=== PATIENT | female | born 1990 | race Caucasian/White ===

== ENCOUNTER 2016-09-16 01:27 | Inpatient (IN) ==
[2016-09-16] MEDS ORDERED: FAMOTIDINE 20 MG/2 ML VIAL IV ONE (01:45)
[2016-09-16] MEDS ORDERED: CITRIC ACID/SODIUM CITRATE 30 ML UDCUP PO ONE (01:45)
[2016-09-16] MEDS ORDERED: LACTATED RINGERS 1,000 ML IV SCH (02:00)
[2016-09-16] MEDS ORDERED: OXYTOCIN/LR 20 UNIT/1,000 ML BAG IV ONE ×3 (02:06→03:59)
[2016-09-16 02:16] LABS: Basophils # 0.1 10*3/uL (0.0-0.2); Basophils % 0.4 % (0.0-0.8); Eosinophils # 0.2 10*3/uL (0.0-0.87); Eosinophils % 1.2 % (0.00-10.9); Hematocrit 31.3 VOL% (35.7-47.0); Hemoglobin 10.3 GM/DL (12.0-16.0); Immature Granulocytes % 0.9 %; Immature Granulocytes Absolute 0.12 #; Lymphocytes % 23.1 % (21.3-54.2); Mean Corpuscular HGB Conc 32.9 GM/DL (32-36); Mean Corpuscular Hemoglobin 30 PG (27-34); Mean Corpuscular Volume 90.2 FL (87-102); Mean Platelet Volume 11.2 FL (9.6-12.0); Monocytes % 7.7 % (1.7-12.7); Neutrophils # 8.5 10*3/uL (1.4-7.4); Neutrophils % 66.7 % (38.7-73.9); Platelet Count 201 T/CUMM (130-400); Red Blood Count 3.47 MC/CUMM (3.8-5.5); Red Cell Distribution Width 12.8 % (9.3-17.3); White Blood Count 12.8 T/CUMM (4-12)
[2016-09-16] MEDS ORDERED: SODIUM CHLORIDE 0.9% 250 ML IV PRN (02:19)
--- NOTE | 2016-09-16 02:49 | History and Physical Update ---
History and Physical Update - Dictation Physical: refer to scanned H&P - Physical Exam Mental Status: alert and oriented Heart: regular rate and rhythm Lung: clear to auscultation Abdomen: within normal limits Vitals: within normal limits History and Physical Changes: 39w3d sched for Primary LTCS for low-lying placenta for this morning presented to L&D with active bleeding at 0200. Plan to proceed with . No other complications.
[2016-09-16] MEDS ORDERED: ACETAMINOPHEN 325 MG TABLET PO PRN (03:42)
[2016-09-16] MEDS ORDERED: SIMETHICONE CHEW 80 MG TABLET PO PRN (03:42)
[2016-09-16] MEDS ORDERED: ONDANSETRON 4 MG/2 ML VIAL IV PRN (03:42)
[2016-09-16] MEDS ORDERED: RHO(D) IMMUNE GLOBULIN 300 MCG SYRINGE IM ONE (03:42)
--- NOTE | 2016-09-16 03:46 | Discharge Summary ---
Hospital Course - Hospital Course Hospital Course: Pt presented to L&D at ~0200 with active vaginal bleeding with known low-lying placenta. She was 39w3d scheduled for Primary LTCS later on 09/16/16. Her course ... Discharge Plan - Discharge Data Disposition: Disch To Home/Self Care Condition at Discharge: Stable Discharge Diet: regular diet Activity: other (pelvic rest x 6 wks) Hygiene: may shower Weight Bearing at Discharge: full weight bearing Contact your physician if you experience:: fever over 101, Difficulty voiding, Redness or swelling, Nausea/Vomiting, Shortness of breath, Bleeding, pain uncontrolled by pain medications - Discharge Medications New Ibuprofen Tab [Motrin Tab] 800 mg PO Q8H PRN #30 tablet PRN Reason: Pain Severe (8-10) oxyCODONE/ACETAMINOPHEN 5-325 [Percocet 5-325] 2 tablet PO Q4H PRN #30 tablet PRN Reason: Pain Moderate (4-7) No Action Vits #90/Iron Fum/FA [ Formula Tablet] 1 mg PO DAILY Ferrous Sulfate, Dried [Iron] 1 mg PO DAILY - Follow Up or Referral Follow Up: Cathy Bonilla DO [Physician] - 1 Week - Forms/Instructions Exam - Constitutional Vitals: Period Temp Pulse Resp BP Sys/Quintero Pulse Ox Last 24 Hr 98.6 F 93 20 133/82 General appearance: normal weight, no acute distress - Head Head exam: Present: normal inspection, normocephalic - Eye Eye exam: Present: EOMI - Respiratory Respiratory exam: Present: clear to auscultation bilaterally - Cardiovascular Cardiovascular exam: Present: regular rate and rhythm - GI/Abdominal GI/Abdominal exam: Present: soft (fundus firm, nontender. Incision intact without E/I/D) - Extremities Exam Extremities exam: Present: normal inspection - Neurological Exam Neurological exam: Present: alert, oriented X3 - Psychiatric Psychiatric exam: Present: normal affect, normal mood - Skin Skin exam: Present: normal color, warm Discharge Results Procedures and tests throughout hospitalization: Pending Orders 09/16/16 02:10 Red Blood Cells Leuko Red Stat Type and Screen Stat 09/17/16 04:00 Comp Blood Count Auto Diff IN AM Labs on day of discharge: Labs from last 24 hours 09/16/16 09/16/16 02:10 02:10 WBC 12.8 H RBC 3.47 L Hgb 10.3 L Hct 31.3 L MCV 90.2 MCH 30 MCHC 32.9 RDW 12.8 Plt Count 201 MPV 11.2 Neut % (Auto) 66.7 Lymph % (Auto) 23.1 Wallace % (Auto) 7.7 Eos % (Auto) 1.2 Baso % (Auto) 0.4 Neut # (Auto) 8.5 H Lymph # (Auto) 3.0 Wallace # (Auto) 1.0 H Eos # (Auto) 0.2 Baso # (Auto) 0.1 Immature Gran % 0.9 Nucleated RBC % 0.0 Immature Gran # 0.12 Nucleated RBCs # 0.00 Blood Type O POSITIVE Antibody Screen Negative DS: Provider Date of admission: 09/16/16 01:45 Primary care physician: . No PCP Attending physician on admission: Cathy Bonilla DO Consults: 09/16/16 01:45 Consult to Anesthesiology [CONS] Routine Consulting Provider: Reason for Anesthesiology: Pre-op Clearance 09/16/16 03:42 Consult to Rn Night [CONS] Routine Consult Rn Night: Breast Feeding Discharging clinician: Cahty Bonilla DO Expected date of discharge: 09/16/16
--- NOTE | 2016-09-16 03:52 | Anesthesia ---
Anesthesia Post OP - Post Ansesthetic Evaluation Patient seen in post op: Yes Resp: within normal limits CV: within normal limits Mental: within normal limits Temp: within normal limits Ybie-Ob-Molcfgimf: within normal limits Nausea and Vomiting: within normal limits Pain: within normal limits
[2016-09-16] MEDS ORDERED: MORPHINE 10 MG/10 ML VIAL ONE (03:55)
[2016-09-16] MEDS ORDERED: fentaNYL 100 MCG/2 ML VIAL ONE (03:55)
[2016-09-16] MEDS ORDERED: ePHEDrine 50 MG/ML AMP ONE (03:55)
[2016-09-16 07:28] LABS: Apearance,Urine Slightly Hazy (Clear); Bilirubin,Urine Negative (Negative); Blood, Urine Small mg/dL (Negative); Glucose,Urine (UA) Negative (Negative); Ketones,Urine Negative (Negative); Mucus,Urine Occasional /LPF (Occasional); Nitrite,Urine Negative (Negative); Protein,Urine 30 MG/DL; RBC,Urine 18 /HPF (0-4); Squamous Epithelial Cell,Urine Occasional /HPF (0-10); Urine Color Yellow (Yellow); Urine Specific Gravity 1.024 (1.001-1.035); Urine Urobilinogen < 2.0 EU/DL (0.2-1.0); WBC,Urine 12 /HPF (0-6)
[2016-09-16] MEDS: DOCUSATE SODIUM 100 MG CAPSULE PO SCH ×2 (08:35→22:00)
[2016-09-16] MEDS: MULTIVITAMIN (PRENATAL) TABLET PO SCH (08:35)
[2016-09-16 10:59] LABS: Basophils % 0.2 % (0.0-0.8); Eosinophils % 0.2 % (0.00-10.9); Hemoglobin 9.1 GM/DL (12.0-16.0); Immature Granulocytes % 0.6 %; Immature Granulocytes Absolute 0.08 #; Lymphocytes # 2.4 10*3/uL (1.4-4.0); Lymphocytes % 16.9 % (21.3-54.2); Mean Corpuscular HGB Conc 32.5 GM/DL (32-36); Mean Corpuscular Hemoglobin 30 PG (27-34); Mean Corpuscular Volume 90.9 FL (87-102); Mean Platelet Volume 11.1 FL (9.6-12.0); Monocytes # 0.8 10*3/uL (0.11-0.8); Monocytes % 5.3 % (1.7-12.7); Neutrophils # 10.9 10*3/uL (1.4-7.4); Neutrophils % 76.8 % (38.7-73.9); Platelet Count 169 T/CUMM (130-400); Red Blood Count 3.08 MC/CUMM (3.8-5.5); Red Cell Distribution Width 12.9 % (9.3-17.3); White Blood Count 14.2 T/CUMM (4-12)
[2016-09-16] MEDS: LACTATED RINGERS 1,000 ML IV SCH ×2 (14:24)
[2016-09-16] MEDS: oxyCODONE/ACETAMINOPHEN 5-325 MG TABLET PO PRN (16:04)
[2016-09-16] MEDS: IBUPROFEN 800 MG TABLET PO PRN (16:05)
[2016-09-16] MEDS: MAGNESIUM HYDROXIDE SUSP 30 ML UDCUP PO PRN (22:00)
[2016-09-17 06:02] LABS: Basophils % 0.2 % (0.0-0.8); Eosinophils # 0.1 10*3/uL (0.0-0.87); Eosinophils % 0.4 % (0.00-10.9); Hematocrit 27.4 VOL% (35.7-47.0); Hemoglobin 8.8 GM/DL (12.0-16.0); Immature Granulocytes % 1.1 %; Immature Granulocytes Absolute 0.15 #; Lymphocytes % 14.4 % (21.3-54.2); Mean Corpuscular HGB Conc 32.1 GM/DL (32-36); Mean Corpuscular Hemoglobin 29 PG (27-34); Mean Platelet Volume 11.5 FL (9.6-12.0); Monocytes # 0.9 10*3/uL (0.11-0.8); Monocytes % 6.6 % (1.7-12.7); Neutrophils # 10.5 10*3/uL (1.4-7.4); Neutrophils % 77.3 % (38.7-73.9); Platelet Count 176 T/CUMM (130-400); Red Blood Count 3.01 MC/CUMM (3.8-5.5); White Blood Count 13.6 T/CUMM (4-12)
[2016-09-17] MEDS: MULTIVITAMIN (PRENATAL) TABLET PO SCH (08:56)
[2016-09-17] MEDS: DOCUSATE SODIUM 100 MG CAPSULE PO SCH ×2 (08:56→21:25)
[2016-09-17] MEDS: MAGNESIUM HYDROXIDE SUSP 30 ML UDCUP PO PRN ×2 (08:56→21:25)
--- NOTE | 2016-09-17 09:59 | OB/GYN Progress Note ---
CONSULTING MANAGER - PN: Subj Interval history: Patient is doing well. She is tolerating her diet. She is alert and oriented 3 Cardiovascular regular rate and rhythm Lungs clear to auscultation Abdomen soft with appropriate tenderness and bowel sounds are present and her incision is dry no bleeding Is good refill HEENT shows pink conjunctiva [place] assessment 1 day of surgery doing well Plan continue present management Exam CONSULTING MANAGER - Constitutional Vitals: Vital Signs Temp Pulse Resp BP Pulse Ox 09/17/16 07:25 99.1 F 85 18 136/79 96 09/17/16 06:00 18 09/17/16 04:00 98.3 F 83 18 124/83 98 09/17/16 02:00 18 09/16/16 23:56 97.6 F 78 18 115/58 98 09/16/16 20:00 97.7 F 78 20 112/67 98 09/16/16 16:00 99.4 F 81 18 133/80 98 09/16/16 11:14 98.2 F 87 20 119/62 98 Results - Labs CBC & BMP: 09/17/16 04:46
[2016-09-17] MEDS: oxyCODONE/ACETAMINOPHEN 5-325 MG TABLET PO PRN (21:55)
[2016-09-17] MEDS: IBUPROFEN 800 MG TABLET PO PRN (21:55)
[2016-09-18 07:28] VITALS: BP 108/66
[2016-09-18] MEDS: MULTIVITAMIN (PRENATAL) TABLET PO SCH (08:59)
[2016-09-18] MEDS: DOCUSATE SODIUM 100 MG CAPSULE PO SCH (08:59)
--- NOTE | 2016-09-18 11:07 | OB/GYN Progress Note ---
WOOD FINISHER - PN: Subj Interval history: Patient is doing well. She is tolerating her diet. She is alert and oriented 3 Cardiovascular regular rate and rhythm Lungs clear to auscultation Abdomen soft with appropriate tenderness and bowel sounds are present and her incision is dry no bleeding Is good refill HEENT shows pink conjunctiva [place] assessment 1 day of surgery doing well Plan continue present management with expected DC in a.m. Exam WOOD FINISHER - Constitutional Vitals: Vital Signs Temp Pulse Resp BP Pulse Ox 09/18/16 07:28 97.3 F L 77 18 108/66 97 09/18/16 03:50 97.1 F L 80 16 110/66 97 09/18/16 00:20 18 09/17/16 23:25 97.8 F 86 18 108/60 96 09/17/16 19:30 98.9 F 93 H 20 130/83 96 09/17/16 15:46 98.6 F 100 H 20 120/82 98 09/17/16 11:24 97.8 F 103 H 20 120/86 98 Results - Labs CBC & BMP: 09/17/16 04:46
[2016-09-18] MEDS ORDERED: MEASLES/MUMPS/RUBELLA VACCINE 0.5 ML VIAL SUBCUT ONE (11:45)
--- NOTE | 2016-09-19 12:59 | Pathology Report from [facility] ---
ACCESSION # : [id number] PATIENT NAME : Keira Paz ORDERING DR : MINOO MUNOZ CLINICAL HX: 39.3 wks IUP, active labor w/low lying placenta & vaginal bleeding POST-OP DX: Same SPECIMEN INFO: Placenta GROSS DESCRIPTION: Received fresh labeled "KEIRA PAZ" is a 492 gm placenta measuring 19.5 x 16.5 x 2.5 cm. The membranes are pink nicole and translucent. The umbilical cord measures 28.0 cm, contain three vessels and is eccentrically inserted. The surface is blue [place] and intact. The maternal surface is hemorrhagic and intact with no abnormalities appreciated upon sectioning. Sections submitted A- membranes and cord, B- and maternal surfaces. DIAGNOSIS FOR KEIRA PAZ: PLACENTA, MEMBRANES, UMBILICAL CORD: Focal placental infarction with dystrophic calcification, mild intervillous blood. Tri -vessel umbilical cord, eccentrically inserted. Membranes with focal acute and chronic inflammation and attached blood. SERVICE DATE: 09/16/2016 REPORT DATE: 09/19/2016 PATHOLOGIST: Champ Mendoza
== END 2016-09-18 13:20 | disposition home or self-care (01) | DRG 766 ==
LOC: N.LDOUT 01:27 → N.LD 01:31 → N.OB 06:00
PROVIDERS: ADMIT Obstetrics & Gynecology; ATTEND Obstetrics & Gynecology
PROC: LDCSECT (ICD-10-PCS; 2016-09-16 02:30)

== ENCOUNTER 2021-02-23 09:57 | Inpatient (IN) ==
[2021-02-23] MEDS ORDERED: CITRIC ACID/SODIUM CITRATE 30 ML UDCUP PO ONE (10:32)
[2021-02-23] MEDS: LACTATED RINGERS 1,000 ML IV SCH ×2 (10:34→14:47)
[2021-02-23 10:59] LABS: Basophils # 0.1 10*3/uL (0.0-0.2); Basophils % 0.6 % (0.0-0.8); Eosinophils # 0.1 10*3/uL (0.0-0.87); Eosinophils % 0.9 % (0.00-10.9); Hematocrit 33.1 VOL% (35.7-47.0); Hemoglobin 10.8 GM/DL (12.0-16.0); Immature Granulocytes % 2.5 %; Immature Granulocytes Absolute 0.31 #; Lymphocytes # 2.4 10*3/uL (1.4-4.0); Lymphocytes % 18.7 % (21.3-54.2); Mean Corpuscular HGB Conc 32.6 GM/DL (32-36); Mean Corpuscular Volume 94.8 FL (87-102); Mean Platelet Volume 9.9 FL (9.6-12.0); Monocytes % 6.2 % (1.7-12.7); Neutrophils % 71.1 % (38.7-73.9); Platelet Count 251 T/CUMM (130-400); Red Blood Count 3.49 MC/CUMM (3.8-5.5); Red Cell Distribution Width 13.2 % (9.3-17.3); White Blood Count 12.6 T/CUMM (4-12)
[2021-02-23 11:18] LABS: Alanine Aminotransferase 11 U/L (13-56); Albumin 2.6 G/DL (3.4-5.0); Alkaline Phosphatase 158 U/L (45-117); Aspartate Amino Transferase 12 U/L (0-37); Bilirubin,Total < 0.39 MG/DL (0.20-1.00); Blood Urea Nitrogen 8 MG/DL (7-18); Calcium 8.5 MG/DL (8.5-10.1); Carbon Dioxide 22 MMOL/L (21-32); Estimated Glom Filtration Rate 152 ML/MIN; Glucose 77 MG/DL (74-106); Osmolality,Calculated 273.5 MOS/KG (273-304); Potassium 4.2 MMOL/L (3.5-5.1); Sodium 139 MMOL/L (136-145); Total Protein 6.3 G/DL (6.4-8.2)
[2021-02-23] MEDS ORDERED: OXYTOCIN 10 UNIT/ML VIAL IM ONE (12:21)
[2021-02-23] MEDS ORDERED: OXYTOCIN/LR 30 UNIT/1,000 ML BAG IV ONE (12:21)
[2021-02-23] MEDS ORDERED: FAMOTIDINE 20 MG/2 ML VIAL IV ONE (12:25)
[2021-02-23] MEDS ORDERED: ceFAZolin 2,000 MG/50 ML DUPLEX IV ONE (13:00)
[2021-02-23] MEDS ORDERED: METHYLERGONOVINE 0.2 MG/1 ML AMP ONE (14:21)
[2021-02-23] MEDS ORDERED: miSOPROStoL 200 MCG TABLET ONE (14:21)
[2021-02-23] MEDS ORDERED: PHENYLEPHRINE 1 MG/10 ML SYRINGE IV ONE (15:33)
[2021-02-23] MEDS ORDERED: BUPIVACAINE SPINAL 0.75% 2 ML AMP SPINAL ONE (16:09)
[2021-02-23] MEDS ORDERED: ONDANSETRON 4 MG/2 ML VIAL ONE (16:09)
[2021-02-23] MEDS ORDERED: ACETAMINOPHEN INJ 1,000 MG/100 ML VIAL IV ONE (16:09)
[2021-02-23 16:17] LABS: Cord Arterial Blood HCO3 22.9 MMOL/L
[2021-02-23 16:20] LABS: Cord Venous Blood HCO3 23.8 MMOL/L; Cord Venous Blood PCO2 47.7 MMHG; Cord Venous Blood PO2 22.6
[2021-02-23 16:30] LABS: Bilirubin,Urine Negative (Negative); Blood, Urine Negative (Negative); Glucose,Urine (UA) Negative (Negative); Hyaline Casts,Urine 1 /LPF (0-3); Ketones,Urine 5 mg/dL (Negative); Mucus,Urine Occasional /LPF (Occasional); Nitrite,Urine Negative (Negative); Protein,Urine Negative; RBC,Urine <1 /HPF (0-4); Urine Appearance CLEAR (Clear); Urine Color Yellow (Yellow); Urine Specific Gravity 1.013 (1.001-1.035); Urine Urobilinogen < 2.0 EU/DL (0.2-1.0)
[2021-02-23] MEDS ORDERED: ACETAMINOPHEN 325 MG TABLET PO PRN (16:56)
[2021-02-23] MEDS ORDERED: OXYTOCIN/LR 20 UNIT/1,000 ML BAG IV ONE (16:56)
[2021-02-23] MEDS ORDERED: RHO(D) IMMUNE GLOBULIN 300 MCG SYRINGE IM ONE (16:56)
[2021-02-23] MEDS ORDERED: ONDANSETRON 4 MG/2 ML VIAL IV PRN (16:56)
[2021-02-23] MEDS ORDERED: LACTATED RINGERS 1,000 ML IV SCH (17:00)
[2021-02-23] MEDS: ACETAMINOPHEN 500 MG TABLET PO SCH (21:45)
[2021-02-24 00:43] LABS: Basophils # 0.1 10*3/uL (0.0-0.2); Basophils % 0.5 % (0.0-0.8); Eosinophils # 0.1 10*3/uL (0.0-0.87); Eosinophils % 0.8 % (0.00-10.9); Hematocrit 30.8 VOL% (35.7-47.0); Hemoglobin 10.3 GM/DL (12.0-16.0); Immature Granulocytes % 1.2 %; Immature Granulocytes Absolute 0.16 #; Lymphocytes # 2.9 10*3/uL (1.4-4.0); Lymphocytes % 21.8 % (21.3-54.2); Mean Corpuscular HGB Conc 33.4 GM/DL (32-36); Mean Corpuscular Volume 94.5 FL (87-102); Mean Platelet Volume 9.9 FL (9.6-12.0); Monocytes % 6.9 % (1.7-12.7); Neutrophils % 68.8 % (38.7-73.9); Platelet Count 223 T/CUMM (130-400); Red Blood Count 3.26 MC/CUMM (3.8-5.5); Red Cell Distribution Width 12.9 % (9.3-17.3); White Blood Count 13.2 T/CUMM (4-12)
[2021-02-24] MEDS: DOCUSATE SODIUM 100 MG CAPSULE PO SCH ×3 (01:29→21:43)
[2021-02-24] MEDS: ACETAMINOPHEN 500 MG TABLET PO SCH ×4 (03:35→21:40)
[2021-02-24] MEDS: MULTIVITAMIN (PRENATAL) TABLET PO SCH (10:26)
[2021-02-24] MEDS: MAGNESIUM HYDROXIDE SUSP 30 ML UDCUP PO PRN ×2 (10:26→21:43)
[2021-02-24] MEDS: SIMETHICONE CHEW 80 MG TABLET PO PRN ×2 (10:26→21:43)
[2021-02-24] MEDS: IBUPROFEN 800 MG TABLET PO PRN (19:57)
[2021-02-25] MEDS: IBUPROFEN 800 MG TABLET PO PRN (04:14)
[2021-02-25] MEDS: ACETAMINOPHEN 500 MG TABLET PO SCH ×2 (04:15→11:38)
[2021-02-25] MEDS: MAGNESIUM HYDROXIDE SUSP 30 ML UDCUP PO PRN (08:44)
[2021-02-25] MEDS: DOCUSATE SODIUM 100 MG CAPSULE PO SCH (08:44)
[2021-02-25] MEDS: MULTIVITAMIN (PRENATAL) TABLET PO SCH (08:44)
[2021-02-25] MEDS: SIMETHICONE CHEW 80 MG TABLET PO PRN (08:45)
[2021-02-25 10:24] VITALS: BP 117/68
[2021-02-25] MEDS ORDERED: DIPH/TET/ACEL PERT BOOSTER VACCINE 0.5 ML VIAL IM ONE (11:15)
== END 2021-02-25 13:00 | disposition home or self-care (01) | DRG 788 ==
LOC: N.LD 09:57 → N.OB 20:59
PROVIDERS: ADMIT Obstetrics & Gynecology; ATTEND Obstetrics & Gynecology
PROC: LDCSECT (ICD-10-PCS; 2021-02-23 13:15)